=== PATIENT | female | born 1975 | race Caucasian/White ===

== ENCOUNTER 2016-12-10 16:15 | Emergency (ER) | payer MEDICAID ==
[2016-12-10 17:11] LABS: BASOPHILS 0.1 % (0.0-2.0); EOSINOPHILS 1.9 % (0-7); HEMATOCRIT 38.9 % (36.0-48.0); HEMOGLOBIN 12.1 g/dL (12-16); IMMATURE GRANULOCYTES 0.4 % (0-5); MCH 29.6 pg (26.0-34.0); MCHC 31.1 g/dL (31.0-37.0); MCV 95.1 fL (80.0-100.0); MEAN PLATELET VOLUME 9.7 fL (7.4-10.4); MONOCYTES 7.7 % (2-11); NEUTROPHILS 66.9 % (40-80); RBC 4.09 10x6/uL (4.00-5.40); RDW 14.3 % (11.5-14.5); WBC 14.9 10x3/uL (4.8-10.8)
[2016-12-10 17:15] LABS: PLATELET COUNT 350 10x3/uL (130-400)
[2016-12-10 17:34] LABS: ALBUMIN 3.7 g/dL (3.4-5.0); ANION GAP 15.9 mmol/L (8-16); BILIRUBIN - TOTAL 0.17 mg/dL (0.2-1.3); CALCIUM 8.5 mg/dL (8.5-10.1); CARBON DIOXIDE 22.7 mmol/L (21.0-32.0); CREATININE - SERUM 1.1 mg/dL (0.6-1.3); POTASSIUM - SERUM 4.6 mmol/L (3.5-5.1); PROTEIN - SERUM 7.4 g/dL (6.4-8.2)
[2016-12-10 20:20] LABS: APPEARANCE CLEAR (CLEAR); BILIRUBIN NEGATIVE (NEGATIVE); COLOR YELLOW (YELLOW); GLUCOSE NEGATIVE (NEGATIVE); KETONE NEGATIVE (NEGATIVE); LEUKOCYTE ESTERASE NEGATIVE (NEGATIVE); NITRITE NEGATIVE (NEGATIVE); PROTEIN NEGATIVE (NEGATIVE); SPECIFIC GRAVITY 1.015 (1.005-1.020); UROBILINOGEN NORMAL (NORMAL)
== END 2016-12-10 20:10 | disposition home or self-care (01) ==
LOC: D.ER 16:15
PROVIDERS: Emergency Medicine
DX: R11.10 Vomiting, unspecified (principal); R19.7 Diarrhea, unspecified; M32.9 Systemic lupus erythematosus, unspecified; E86.0 Dehydration; M79.7 Fibromyalgia; F25.9 Schizoaffective disorder, unspecified

== ENCOUNTER 2016-12-30 13:29 | Emergency (ER) | payer MEDICAID ==
[2016-12-30 15:11] LABS: BASOPHILS 0.2 % (0.0-2.0); EOSINOPHILS 3.1 % (0-7); HEMATOCRIT 36.4 % (36.0-48.0); HEMOGLOBIN 11.2 g/dL (12-16); IMMATURE GRANULOCYTES 0.4 % (0-5); LYMPHOCYTES 21.4 % (15-50); MCH 28.5 pg (26.0-34.0); MCHC 30.8 g/dL (31.0-37.0); MCV 92.6 fL (80.0-100.0); MEAN PLATELET VOLUME 9.8 fL (7.4-10.4); MONOCYTES 6.9 % (2-11); PLATELET COUNT 298 10x3/uL (130-400); RBC 3.93 10x6/uL (4.00-5.40); RDW 13.8 % (11.5-14.5); WBC 12.6 10x3/uL (4.8-10.8)
[2016-12-30 15:30] LABS: ALBUMIN 3.3 g/dL (3.4-5.0); ANION GAP 11.7 mmol/L (8-16); BILIRUBIN - TOTAL 0.2 mg/dL (0.2-1.3); CALCIUM 8.6 mg/dL (8.5-10.1); CARBON DIOXIDE 27.4 mmol/L (21.0-32.0); POTASSIUM - SERUM 4.1 mmol/L (3.5-5.1); PROTEIN - SERUM 7.2 g/dL (6.4-8.2)
== END 2016-12-30 19:15 | disposition home or self-care (01) ==
LOC: D.ER 13:29
PROVIDERS: Emergency Medicine
DX: R55 Syncope and collapse (principal); I10 Essential (primary) hypertension; I95.9 Hypotension, unspecified; M32.9 Systemic lupus erythematosus, unspecified; F25.9 Schizoaffective disorder, unspecified

== ENCOUNTER 2017-02-28 19:35 | Emergency (ER) | payer MEDICAID ==
[2017-02-28 21:06] LABS: BASOPHILS 0.1 % (0-2); EOSINOPHILS 2.2 % (0-7); HEMOGLOBIN 12.2 g/dL (12-16); IMMATURE GRANULOCYTES 0.4 % (0-5); LYMPHOCYTES 26.6 % (15-50); MCH 28.4 pg (26.0-34.0); MCHC 31.3 g/dL (31.0-37.0); MCV 90.9 fL (80.0-100.0); MEAN PLATELET VOLUME 9.2 fL (7.4-10.4); MONOCYTES 6.9 % (2-11); NEUTROPHILS 63.8 % (40-80); PLATELET COUNT 333 10x3/uL (130-400); RBC 4.29 10x6/uL (4.00-5.40); RDW 15.2 % (11.5-14.5)
[2017-02-28 21:14] LABS: APPEARANCE CLEAR (CLEAR); BILIRUBIN NEGATIVE (NEGATIVE); COLOR YELLOW (YELLOW); GLUCOSE NEGATIVE (NEGATIVE); KETONE NEGATIVE (NEGATIVE); LEUKOCYTE ESTERASE NEGATIVE (NEGATIVE); NITRITE NEGATIVE (NEGATIVE); PROTEIN NEGATIVE (NEGATIVE); SPECIFIC GRAVITY 1.015 (1.005-1.020); UROBILINOGEN NORMAL (NORMAL)
[2017-02-28 21:15] LABS: BACTERIA FEW /hpf (NONE SEEN); EPITHELIAL CELLS 0-5 /hpf (0-5); RED CELLS - URINE 0-5 /hpf (0-5); WHITE CELLS - URINE NSEEN /hpf (0-5)
[2017-02-28 21:28] LABS: ANION GAP 14.4 mmol/L (8-16); CREATININE - SERUM 1.3 mg/dL (0.6-1.3); POTASSIUM - SERUM 4.4 mmol/L (3.5-5.1)
== END 2017-03-01 00:35 | disposition home or self-care (01) ==
LOC: D.ER 19:35
PROVIDERS: Physician Assistant Medical
DX: R13.10 Dysphagia, unspecified (principal); I10 Essential (primary) hypertension; I95.9 Hypotension, unspecified; F25.9 Schizoaffective disorder, unspecified; M32.9 Systemic lupus erythematosus, unspecified

== ENCOUNTER 2017-03-26 14:20 | Emergency (ER) | payer MEDICAID ==
[2017-03-26 15:20] LABS: BASOPHILS 0.1 % (0-2); EOSINOPHILS 1.9 % (0-7); HEMATOCRIT 38.3 % (36.0-48.0); IMMATURE GRANULOCYTES 0.2 % (0-5); LYMPHOCYTES 30.2 % (15-50); MCH 28.4 pg (26.0-34.0); MCHC 31.3 g/dL (31.0-37.0); MCV 90.5 fL (80.0-100.0); MONOCYTES 6.7 % (2-11); NEUTROPHILS 60.9 % (40-80); PLATELET COUNT 312 10x3/uL (130-400); RBC 4.23 10x6/uL (4.00-5.40); RDW 16.2 % (11.5-14.5); WBC 11.1 10x3/uL (4.8-10.8)
[2017-03-26 15:31] LABS: ALBUMIN 3.3 g/dL (3.4-5.0); ANION GAP 11.5 mmol/L (8-16); BILIRUBIN - TOTAL 0.22 mg/dL (0.2-1.3); CALCIUM 9.2 mg/dL (8.5-10.1); CARBON DIOXIDE 26.7 mmol/L (21.0-32.0); CREATININE - SERUM 1.3 mg/dL (0.6-1.3); POTASSIUM - SERUM 4.2 mmol/L (3.5-5.1); PROTEIN - SERUM 7.4 g/dL (6.4-8.2)
[2017-03-26 17:58] LABS: T4 THYROXIN - FREE 0.92 ng/dL (0.76-1.46); THYROID STIMULATING HORMONE 4.86 uIU/mL (0.36-3.74)
== END 2017-03-26 19:30 | disposition home or self-care (01) ==
LOC: D.ER 14:20
PROVIDERS: Emergency Medicine; Physician Assistant
DX: M54.2 Cervicalgia (principal); R11.2 Nausea with vomiting, unspecified; E03.9 Hypothyroidism, unspecified; I10 Essential (primary) hypertension; F25.9 Schizoaffective disorder, unspecified; F17.200 Nicotine dependence, unspecified, uncomplicated

== ENCOUNTER 2017-06-23 11:09 | Emergency (ER) | payer MEDICAID ==
[2017-06-23 11:50] LABS: APPEARANCE CLEAR (CLEAR); BACTERIA MODERATE /hpf (NONE SEEN); BILIRUBIN NEGATIVE (NEGATIVE); COLOR STRAW (YELLOW); EPITHELIAL CELLS 0-5 /hpf (0-5); GLUCOSE NEGATIVE (NEGATIVE); KETONE NEGATIVE (NEGATIVE); LEUKOCYTE ESTERASE TRACE (NEGATIVE); MUCUS <1+ /lpf (NONE SEEN); NITRITE NEGATIVE (NEGATIVE); PROTEIN NEGATIVE (NEGATIVE); SPECIFIC GRAVITY 1.005 (1.005-1.020); UROBILINOGEN NORMAL (NORMAL); WHITE CELLS - URINE 0-5 /hpf (0-5)
[2017-06-23 12:00] LABS: UDS - AMPHET NEGATIVE QUAL (NEGATIVE); UDS - BARB NEGATIVE QUAL (NEGATIVE); UDS - BENZO NEGATIVE QUAL (NEGATIVE); UDS - COCAINE NEGATIVE QUAL (NEGATIVE); UDS - METH NEGATIVE QUAL (NEGATIVE); UDS - OPIATE NEGATIVE QUAL (NEGATIVE); UDS - PCP NEGATIVE QUAL (NEGATIVE); UDS - THC POSITIVE QUAL (NEGATIVE)
[2017-06-23 12:11] LABS: BASOPHILS 0.1 % (0-2); EOSINOPHILS 1.9 % (0-7); HEMATOCRIT 38.5 % (36.0-48.0); HEMOGLOBIN 12.2 g/dL (12-16); IMMATURE GRANULOCYTES 0.5 % (0-5); LYMPHOCYTES 20.1 % (15-50); MCH 28.9 pg (26.0-34.0); MCHC 31.7 g/dL (31.0-37.0); MCV 91.2 fL (80.0-100.0); MEAN PLATELET VOLUME 9.3 fL (7.4-10.4); MONOCYTES 6.4 % (2-11); PLATELET COUNT 283 10x3/uL (130-400); RBC 4.22 10x6/uL (4.00-5.40); RDW 14.7 % (11.5-14.5); WBC 14.6 10x3/uL (4.8-10.8)
[2017-06-23 12:25] LABS: ALBUMIN 3.2 g/dL (3.4-5.0); ANION GAP 11.6 mmol/L (8-16); BILIRUBIN - TOTAL 0.23 mg/dL (0.2-1.3); CALCIUM 8.6 mg/dL (8.5-10.1); CARBON DIOXIDE 26.7 mmol/L (21.0-32.0); POTASSIUM - SERUM 4.3 mmol/L (3.5-5.1); PROTEIN - SERUM 7.3 g/dL (6.4-8.2)
== END 2017-06-23 14:59 | disposition home or self-care (01) ==
LOC: D.ER 11:09
PROVIDERS: Emergency Medicine; Nurse Practitioner Family
DX: N39.0 Urinary tract infection, site not specified (principal); N76.0 Acute vaginitis; B96.89 Other specified bacterial agents as the cause of diseases classified elsewhere; M54.5 Low back pain; I10 Essential (primary) hypertension

== ENCOUNTER 2018-08-05 17:04 | Inpatient (IN) | payer MEDICAID ==
[~2018-08-05] VITALS: Ht 160 cm; Wt 128.7 kg
--- NOTE | ~2018-08-05 | MORECARE ---
CASE MANAGEMENT DISCHARGE SUMMARY PATIENT: DOROTA LANDERS UNIT: [id number] ADM DATE: 08/05/18 AGE: 43 : 73 SEX: F ROOM/BED: D.2206 AUTHOR: JONAS PEREZ PHYSICIAN: REFERRING PHYSICIAN: GITA MABRY MD DATE OF SERVICE: 08/06/18 Discharge Plan Patient Name: DOROTA LANDERS Facility: [facility]:[place] : 1975 Planned Disposition: Home Anticipated Discharge Date: Discharge Date: Expected LOS: Initial Reviewer: [email or web address] Initial Review Date: 08/05/2018 Generated: 08/06/18 1:18 pm Comments DCP- Discharge Planning Updated by [email or web address]: Kierra Reyes on 08/06/18 11:[address] Patient Name: DOROTA LANDERS Admission Status: ER Accout number: [id number] Admission Date: 08-05-2018 : 1975 Admission Diagnosis:NONINFECTIVE GASTROENTERITIS AND COLITIS, UNSPECIFIED Attending: GITA MABRY Current LOS: 1 Anticipated DC Date: Planned Disposition: Home Primary Insurance: MEDICAID [place] Discharge Planning Comments: CM met with patient to assess discharge planning needs. Patient stated that she is independent with her care at home. She stated that someone will pick her up. They do not have a car right now, but her can borrow one. She uses a cane sometime. She has 15 steps outside to get in her front door. She stated that her 18 year old boy will be able to help her up. She denies any HH needs at this time. CM will continue to follow and assist with DC planning as needed. She states her home is safe to return Service Crew Supervisor: Kierra Reyes DCPIA - Discharge Planning Initial Assessment Updated by [email or web address]: Kierra Reyes on 08/06/18 12:06 pm * Is the patient Alert and Oriented? Yes * How many steps to enter\exit or inside your home? 15 * PCP [facility] (RONNY CLARKE) * Pharmacy [facility] * Preadmission Environment Home with Family * ADLs Independent * Equipment Cane * List name and contact numbers for known caregivers / representatives who currently or will assist patient after discharge: HERSON [phone] * Verbal permission to speak to the caregivers and representatives has been obtained from the patient. N/A * Community resources currently utilized None * Additional services required to return to the preadmission environment? No * Can the patient safely return to the preadmission environment? Yes * Has this patient been hospitalized within the prior 30 days at any hospital? No Last DP export: 08/06/18 11:11 a Patient Name: DOROTA LANDERS Page 85663 at 1218 All edits/amendments must be made on the electronic document DICTATION DATE: 08/06/18 1218 FINAL CIGAR AND BOX EXAMINER: VIJI 08/06/18 1218 RPT#: [id number] DC DATE: STATUS: ADM IN [facility] [address] [place] [address] END OF REPORT
--- NOTE | ~2018-08-05 | MORECARE ---
CASE MANAGEMENT DISCHARGE SUMMARY PATIENT: DOROTA LANDERS UNIT: [id number] ADM DATE: 08/05/18 AGE: 43 : 73 SEX: F ROOM/BED: D.2206 AUTHOR: JONAS PEREZ PHYSICIAN: REFERRING PHYSICIAN: GITA MABRY MD DATE OF SERVICE: 08/06/18 Discharge Plan Patient Name: DOROTA LANDERS [facility] : 1975 Planned Disposition: Home Anticipated Discharge Date: Discharge Date: Expected LOS: Initial Reviewer: [email or web address] Initial Review Date: 08/05/2018 Generated: 08/06/18 1:11 pm DCPIA - Discharge Planning Initial Assessment Updated by [email or web address]: Kierra Reyes on 08/06/18 12:06 pm * Is the patient Alert and Oriented? Yes * How many steps to enter\exit or inside your home? 15 * PCP [facility] (RONNY CLARKE) * Pharmacy [facility] * Preadmission Environment Home with Family * ADLs Independent * Equipment Cane * List name and contact numbers for known caregivers / representatives who currently or will assist patient after discharge: HERSON [phone] * Verbal permission to speak to the caregivers and representatives has been obtained from the patient. N/A * Community resources currently utilized None * Additional services required to return to the preadmission environment? No * Can the patient safely return to the preadmission environment? Yes * Has this patient been hospitalized within the prior 30 days at any hospital? No Patient Name: DOROTA LANDERS Page 22696 at 1211 All edits/amendments must be made on the electronic document DICTATION DATE: 08/06/18 1210 UNDERGROUND REPAIRER: VIJI 08/06/18 1210 RPT#: [id number] DC DATE: STATUS: ADM IN [facility] [address] [place] [address] END OF REPORT
--- NOTE | ~2018-08-05 | MORECARE ---
CASE MANAGEMENT DISCHARGE SUMMARY PATIENT: DOROTA LANDERS UNIT: [id number] ADM DATE: 08/05/18 AGE: 43 : 73 SEX: F ROOM/BED: D.2206 AUTHOR: JONAS PEREZ PHYSICIAN: REFERRING PHYSICIAN: GITA MABRY MD DATE OF SERVICE: 08/16/18 Discharge Plan Patient Name: DOROTA LANDERS Facility: [facility]:[place] : 1975 Planned Disposition: Home Anticipated Discharge Date: Discharge Date: 08/15/2018 Expected LOS: 0 Initial Reviewer: [email or web address] Initial Review Date: 08/05/2018 Generated: 08/16/18 10:21 am DCP- Discharge Planning Updated by [email or web address]: Kierra Reyes on 08/06/18 12:[address] Patient Name: DOROTA LANDERS Admission Status: ER Accout number: [id number] Admission Date: 08-05-2018 : 1975 Admission Diagnosis:NONINFECTIVE GASTROENTERITIS AND COLITIS, UNSPECIFIED Attending: GITA MABRY Current LOS: 1 Anticipated DC Date: Planned Disposition: Home Primary Insurance: MEDICAID [place] Discharge Planning Comments: CM met with patient to assess discharge planning needs. Patient stated that she is independent with her care at home. She stated that someone will pick her up. They do not have a car right now, but her can borrow one. She uses a cane sometime. She has 15 steps outside to get in her front door. She stated that her 18 year old boy will be able to help her up. She denies any HH needs at this time. CM will continue to follow and assist with DC planning as needed. She states her home is safe to return Condenser Winder: Kierra Reyes DCPIA - Discharge Planning Initial Assessment Updated by [email or web address]: Kierra Reyes on 08/06/18 12:06 pm * Is the patient Alert and Oriented? Yes * How many steps to enter\exit or inside your home? 15 * PCP [facility] (RONNY CLARKE) * Pharmacy [facility] * Preadmission Environment Home with Family * ADLs Independent * Equipment Cane * List name and contact numbers for known caregivers / representatives who currently or will assist patient after discharge: HERSON [phone] * Verbal permission to speak to the caregivers and representatives has been obtained from the patient. N/A * Community resources currently utilized None * Additional services required to return to the preadmission environment? No * Can the patient safely return to the preadmission environment? Yes * Has this patient been hospitalized within the prior 30 days at any hospital? No Last DP export: 08/06/18 12:18 p Patient Name: DOROTA LANDERS Page 56400 at 0921 All edits/amendments must be made on the electronic document DICTATION DATE: 08/16/18920 CHIEF LIBRARIAN MUSIC DEPARTMENT: VIJI 08/16/18920 RPT#: [id number] DC DATE:08/15/18 STATUS: DIS IN [facility] [address] [place] [address] END OF REPORT
[2018-08-05] MEDS ORDERED: GABAPENTIN100 MG PO (17:07)
[2018-08-05] MEDS ORDERED: EFFEXOR100 MG PO (17:08)
[2018-08-05] MEDS ORDERED: KLONOPIN1 MG PO (17:08)
[2018-08-05] MEDS ORDERED: LEVOTHYROXINE175 MCG PO (17:08)
[2018-08-05] MEDS ORDERED: TRAZODONE HCL100 MG PO (17:09)
[2018-08-05] MEDS ORDERED: ABILIFY10 MG PO (17:09)
[2018-08-05] MEDS ORDERED: PLAQUENIL 200200 MG PO (17:10)
[2018-08-05 17:44] LABS: BASOPHILS 0.2 % (0-2); EOSINOPHILS 10.8 % (0-7); HEMATOCRIT 40.9 % (36.0-48.0); HEMOGLOBIN 13.1 g/dL (12-16); IMMATURE GRANULOCYTES 0.2 % (0-5); LYMPHOCYTES 26.1 % (15-50); MCH 27.5 pg (26.0-34.0); MCV 85.9 fL (80.0-100.0); MEAN PLATELET VOLUME 9.4 fL (7.4-10.4); MONOCYTES 5.8 % (2-11); NEUTROPHILS 56.9 % (40-80); PLATELET COUNT 321 10x3/uL (130-400); RBC 4.76 10x6/uL (4.00-5.40); RDW 15.3 % (11.5-14.5); WBC 12.4 10x3/uL (4.8-10.8)
[2018-08-05 17:57] LABS: ALBUMIN 3.4 g/dL (3.4-5.0); ALKALINE PHOSPHATASE 61 U/L (46-116); ALT (SGPT) 24 U/L (10-68); BILIRUBIN - TOTAL 0.37 mg/dL (0.2-1.3); CALC OSMOLALITY 274 mosm/kg (275-300); CALCIUM 9.6 mg/dL (8.5-10.1); CARBON DIOXIDE 26.5 mmol/L (21.0-32.0); CHLORIDE - SERUM 103 mmol/L (98-107); GLUCOSE 88 mg/dL (74-106); POTASSIUM - SERUM 3.8 mmol/L (3.5-5.1); PROTEIN - SERUM 7.8 g/dL (6.4-8.2); SODIUM 139 mmol/L (136-145); UREA NITROGEN 7 mg/dL (7-18); eGFR NON AFRICAN AMERICAN 64 mL/min (90-120)
[2018-08-05 18:01] LABS: AMYLASE - SERUM 22 U/L (25-115); LIPASE 127 U/L (73-393)
[2018-08-05 18:04] LABS: TROPONIN-I < 0.017 ng/mL (0.000-0.060)
[2018-08-05 18:35] LABS: APPEARANCE CLOUDY (CLEAR); COLOR YELLOW (YELLOW)
[2018-08-05 18:36] LABS: BILIRUBIN NEGATIVE (NEGATIVE); GLUCOSE NEGATIVE (NEGATIVE); KETONE NEGATIVE (NEGATIVE); NITRITE NEGATIVE (NEGATIVE); PROTEIN 1+ mg/dL (NEGATIVE); RED CELLS - URINE 0-5 /hpf (0-5); SPECIFIC GRAVITY 1.015 (1.005-1.020); UROBILINOGEN NORMAL (NORMAL)
[2018-08-05 18:38] LABS: BACTERIA MODERATE /hpf (NONE SEEN)
[2018-08-05 18:39] LABS: MUCUS <1+ /lpf (NONE SEEN)
[2018-08-05 23:34] VITALS: BP 140/86; BMI 50.2
[2018-08-06 05:11] VITALS: BP 101/70
[2018-08-06 06:12] LABS: BASOPHILS 0.1 % (0-2); HEMATOCRIT 36.8 % (36.0-48.0); HEMOGLOBIN 11.5 g/dL (12-16); IMMATURE GRANULOCYTES 0.3 % (0-5); LYMPHOCYTES 24.5 % (15-50); MCHC 31.3 g/dL (31.0-37.0); MCV 86.4 fL (80.0-100.0); MEAN PLATELET VOLUME 9.7 fL (7.4-10.4); MONOCYTES 5.5 % (2-11); NEUTROPHILS 55.6 % (40-80); PLATELET COUNT 305 10x3/uL (130-400); RBC 4.26 10x6/uL (4.00-5.40); RDW 15.7 % (11.5-14.5); WBC 9.6 10x3/uL (4.8-10.8)
[2018-08-06 06:36] LABS: ALBUMIN 2.8 g/dL (3.4-5.0); ANION GAP 12.4 mmol/L (8-16); BILIRUBIN - TOTAL 0.44 mg/dL (0.2-1.3); CALCIUM 8.7 mg/dL (8.5-10.1); CARBON DIOXIDE 27.9 mmol/L (21.0-32.0); POTASSIUM - SERUM 4.3 mmol/L (3.5-5.1); PROTEIN - SERUM 6.3 g/dL (6.4-8.2)
[2018-08-06 08:23] VITALS: BP 118/56
[2018-08-06 10:08] VITALS: BMI 50.1
[2018-08-06 12:13] VITALS: BP 110/65
[2018-08-06 16:23] VITALS: BP 106/70
[2018-08-06 21:18] VITALS: BP 101/61
[2018-08-07 06:01] LABS: BASOPHILS 0.1 % (0-2); EOSINOPHILS 14.3 % (0-7); HEMATOCRIT 36.1 % (36.0-48.0); HEMOGLOBIN 11.1 g/dL (12-16); IMMATURE GRANULOCYTES 0.2 % (0-5); LYMPHOCYTES 30.8 % (15-50); MCH 26.9 pg (26.0-34.0); MCHC 30.7 g/dL (31.0-37.0); MCV 87.4 fL (80.0-100.0); MEAN PLATELET VOLUME 9.7 fL (7.4-10.4); MONOCYTES 7.5 % (2-11); NEUTROPHILS 47.1 % (40-80); PLATELET COUNT 303 10x3/uL (130-400); RBC 4.13 10x6/uL (4.00-5.40); RDW 15.3 % (11.5-14.5); WBC 8.1 10x3/uL (4.8-10.8)
[2018-08-07 06:22] LABS: ALBUMIN 2.7 g/dL (3.4-5.0); ANION GAP 10.4 mmol/L (8-16); BILIRUBIN - TOTAL 0.16 mg/dL (0.2-1.3); CALCIUM 8.8 mg/dL (8.5-10.1); CARBON DIOXIDE 27.7 mmol/L (21.0-32.0); CREATININE - SERUM 0.9 mg/dL (0.6-1.3); POTASSIUM - SERUM 4.1 mmol/L (3.5-5.1); PROTEIN - SERUM 6.4 g/dL (6.4-8.2)
[2018-08-07 09:17] VITALS: BP 113/58
[2018-08-07 12:43] VITALS: BP 148/62
[2018-08-07 17:00] VITALS: BP 146/78
[2018-08-07 20:43] VITALS: BP 133/69
[2018-08-08 00:44] VITALS: BP 127/59
[2018-08-08 04:00] VITALS: BP 121/55
[2018-08-08 06:07] LABS: BASOPHILS 0.1 % (0-2); EOSINOPHILS 10.2 % (0-7); HEMATOCRIT 35.6 % (36.0-48.0); HEMOGLOBIN 10.9 g/dL (12-16); IMMATURE GRANULOCYTES 0.2 % (0-5); LYMPHOCYTES 27.5 % (15-50); MCH 26.7 pg (26.0-34.0); MCHC 30.6 g/dL (31.0-37.0); MEAN PLATELET VOLUME 9.6 fL (7.4-10.4); MONOCYTES 6.7 % (2-11); NEUTROPHILS 55.3 % (40-80); PLATELET COUNT 276 10x3/uL (130-400); RBC 4.09 10x6/uL (4.00-5.40); RDW 15.4 % (11.5-14.5)
[2018-08-08 06:27] LABS: ANION GAP 9.8 mmol/L (8-16); CALCIUM 8.7 mg/dL (8.5-10.1); CREATININE - SERUM 0.9 mg/dL (0.6-1.3); POTASSIUM - SERUM 3.8 mmol/L (3.5-5.1)
[2018-08-08 08:17] VITALS: BP 137/75
[2018-08-08 11:56] VITALS: BP 135/68
[2018-08-08 16:07] VITALS: BP 127/67
[2018-08-08 20:00] VITALS: BP 142/75
[2018-08-09 01:00] VITALS: BP 124/54
[2018-08-09 05:24] VITALS: BP 121/60
[2018-08-09 08:12] VITALS: BP 100/66
[2018-08-09 13:04] VITALS: BP 112/72
[2018-08-09 16:33] VITALS: BP 108/65
[2018-08-09 20:00] VITALS: BP 124/49
[2018-08-10] VITALS: BP 125/68
[2018-08-10 04:00] VITALS: BP 117/61
[2018-08-10 08:30] VITALS: BP 108/71
[2018-08-10 12:45] VITALS: BP 106/61
[2018-08-10 16:22] VITALS: BP 116/71
[2018-08-10 20:28] VITALS: Ht 160 cm; Wt 128.7 kg
[2018-08-10 20:41] VITALS: BP 135/52
[2018-08-11 04:52] VITALS: BP 98/59
[2018-08-11 05:32] LABS: BASOPHILS 0.1 % (0-2); EOSINOPHILS 12.7 % (0-7); HEMOGLOBIN 11.4 g/dL (12-16); IMMATURE GRANULOCYTES 0.3 % (0-5); LYMPHOCYTES 30.7 % (15-50); MCH 27.2 pg (26.0-34.0); MCHC 30.8 g/dL (31.0-37.0); MCV 88.3 fL (80.0-100.0); MEAN PLATELET VOLUME 9.8 fL (7.4-10.4); MONOCYTES 7.3 % (2-11); NEUTROPHILS 48.9 % (40-80); PLATELET COUNT 298 10x3/uL (130-400); RBC 4.19 10x6/uL (4.00-5.40); WBC 9.4 10x3/uL (4.8-10.8)
[2018-08-11 05:49] LABS: ANION GAP 10.7 mmol/L (8-16); CALCIUM 8.8 mg/dL (8.5-10.1); CARBON DIOXIDE 28.1 mmol/L (21.0-32.0); CREATININE - SERUM 0.9 mg/dL (0.6-1.3); POTASSIUM - SERUM 3.8 mmol/L (3.5-5.1)
[2018-08-11 09:06] VITALS: BP 117/74
[2018-08-11 13:14] VITALS: BP 126/81
[2018-08-11 21:32] VITALS: BP 125/87
[2018-08-12 04:59] LABS: BASOPHILS 0.1 % (0-2); EOSINOPHILS 8.7 % (0-7); HEMATOCRIT 34.4 % (36.0-48.0); HEMOGLOBIN 10.6 g/dL (12-16); IMMATURE GRANULOCYTES 0.2 % (0-5); LYMPHOCYTES 27.3 % (15-50); MCHC 30.8 g/dL (31.0-37.0); MCV 87.5 fL (80.0-100.0); MEAN PLATELET VOLUME 9.8 fL (7.4-10.4); MONOCYTES 8.2 % (2-11); NEUTROPHILS 55.5 % (40-80); PLATELET COUNT 291 10x3/uL (130-400); RBC 3.93 10x6/uL (4.00-5.40); WBC 9.8 10x3/uL (4.8-10.8)
[2018-08-12 05:12] LABS: CALC OSMOLALITY 276 mosm/kg (275-300); CALCIUM 8.1 mg/dL (8.5-10.1); CARBON DIOXIDE 30.4 mmol/L (21.0-32.0); CHLORIDE - SERUM 105 mmol/L (98-107); CREATININE - SERUM 0.8 mg/dL (0.6-1.3); GLUCOSE 89 mg/dL (74-106); POTASSIUM - SERUM 3.6 mmol/L (3.5-5.1); SODIUM 141 mmol/L (136-145); eGFR NON AFRICAN AMERICAN 82 mL/min (90-120)
[2018-08-12 05:19] VITALS: BP 131/82
[2018-08-12 05:24] LABS: UREA NITROGEN 3 mg/dL (7-18)
[2018-08-12 06:08] LABS: ERYTHROCYTE SEDIMENTATION RATE 35 mm/hr (0-20)
[2018-08-12 08:30] VITALS: BP 118/67
[2018-08-12 17:06] VITALS: BP 131/82
[2018-08-12 19:47] VITALS: BP 128/68
[2018-08-13 04:56] VITALS: BP 115/66
[2018-08-13 08:25] VITALS: BP 113/69
[2018-08-13 10:55] LABS: AMYLASE - SERUM 21 U/L (25-115); LIPASE 153 U/L (73-393)
[2018-08-13 12:50] VITALS: BP 120/78
[2018-08-13 14:26] LABS: OVA + PARASITE EXAM Final report (())
[2018-08-13 17:11] VITALS: BP 121/61
[2018-08-13 19:44] VITALS: BP 121/73
[2018-08-14 01:05] VITALS: BP 134/74
[2018-08-14 09:18] VITALS: BP 121/67
[2018-08-14 12:28] VITALS: BP 129/78
[2018-08-14 16:28] VITALS: BP 133/67
[2018-08-14 20:06] VITALS: BP 134/94
[2018-08-15 04:26] VITALS: BP 154/80
[2018-08-15 05:01] LABS: BASOPHILS 0.1 % (0-2); EOSINOPHILS 5.1 % (0-7); HEMATOCRIT 35.3 % (36.0-48.0); HEMOGLOBIN 11.1 g/dL (12-16); IMMATURE GRANULOCYTES 0.3 % (0-5); LYMPHOCYTES 24.3 % (15-50); MCH 27.3 pg (26.0-34.0); MCHC 31.4 g/dL (31.0-37.0); MCV 86.7 fL (80.0-100.0); MEAN PLATELET VOLUME 9.3 fL (7.4-10.4); MONOCYTES 8.1 % (2-11); NEUTROPHILS 62.1 % (40-80); PLATELET COUNT 291 10x3/uL (130-400); RBC 4.07 10x6/uL (4.00-5.40); RDW 15.8 % (11.5-14.5); WBC 11.9 10x3/uL (4.8-10.8)
[2018-08-15 05:10] LABS: CALC OSMOLALITY 277 mosm/kg (275-300); CHLORIDE - SERUM 103 mmol/L (98-107); CREATININE - SERUM 0.7 mg/dL (0.6-1.3); GLUCOSE 110 mg/dL (74-106); POTASSIUM - SERUM 4.1 mmol/L (3.5-5.1); SODIUM 139 mmol/L (136-145); UREA NITROGEN 9 mg/dL (7-18); eGFR NON AFRICAN AMERICAN > 90 mL/min (90-120)
[2018-08-15] MEDS ORDERED: FLORAJEN3 CAPS460 MG PO (09:36)
[2018-08-15] MEDS ORDERED: ENTOCORT EC3 MG PO (09:38)
[2018-08-15] MEDS ORDERED: HYDROCODON-ACE1 EAC7 PO (09:38)
[2018-08-15 09:47] VITALS: BP 134/68
[2018-08-18 16:16] LABS: CHLAMYDIA TRACHOMATIS, NAA Negative (Negative)
== END 2018-08-15 12:02 | disposition home or self-care (01) | DRG 392 ==
LOC: D.ER 17:04 → D.MS 19:38
PROVIDERS: Family Medicine; Internal Medicine Gastroenterology
PROC: 0DBK8ZX Excision of Ascending Colon, Via Natural or Artificial Opening Endoscopic, Diagnostic (ICD-10-PCS; 2018-08-12)
PROC: 0DBN8ZX Excision of Sigmoid Colon, Via Natural or Artificial Opening Endoscopic, Diagnostic (ICD-10-PCS; 2018-08-12)
PROC: 0DB68ZX Excision of Stomach, Via Natural or Artificial Opening Endoscopic, Diagnostic (ICD-10-PCS; principal; 2018-08-12 11:00)
DX: K52.832 Lymphocytic colitis (principal); Z68.43 Body mass index [BMI] 50.0-59.9, adult; N39.0 Urinary tract infection, site not specified; M32.9 Systemic lupus erythematosus, unspecified; R63.4 Abnormal weight loss; E66.01 Morbid (severe) obesity due to excess calories; K64.8 Other hemorrhoids; K44.9 Diaphragmatic hernia without obstruction or gangrene; K29.70 Gastritis, unspecified, without bleeding; N83.209 Unspecified ovarian cyst, unspecified side; D25.9 Leiomyoma of uterus, unspecified; N76.0 Acute vaginitis; B37.3 Candidiasis of vulva and vagina; E03.9 Hypothyroidism, unspecified

== ENCOUNTER → 2019-01-24 13:10 | Outpatient (CLI) | payer OTHER ==
[2018-08-10 20:28] VITALS: BMI 50.1
[~2019-01-24 13:10] MED LIST: ABILIFY10 MG PO; EFFEXOR100 MG PO; ENTOCORT EC3 MG PO; FLORAJEN3 CAPS460 MG PO; GABAPENTIN100 MG PO; HYDROCODON-ACE1 EAC7 PO; KLONOPIN1 MG PO; LEVOTHYROXINE175 MCG PO; PLAQUENIL 200200 MG PO; TRAZODONE HCL100 MG PO
== END | disposition home or self-care (01) ==
LOC: D.RAD 08:30
PROVIDERS: ATTEND Pediatrics
DX: Z02.71 Encounter for disability determination (principal)

== ENCOUNTER 2019-03-23 15:13 | Emergency (ER) | payer MEDICAID ==
[~2019-03-23] VITALS: Ht 160 cm; Wt 131.0 kg
[2019-03-23 15:21] VITALS: Ht 160 cm; Wt 131.0 kg
[2019-03-23] MEDS ORDERED: BUSPAR 15 MG TA15 MG PO (15:27)
[2019-03-23] MEDS ORDERED: BENTYL10 MG PO (15:27)
[2019-03-23] MEDS ORDERED: TRAZODONE HCL150 MG PO (15:28)
[2019-03-23] MEDS ORDERED: VITAMIN B-1250 MG PO (15:28)
[2019-03-23 16:10] LABS: BASOPHILS 0.1 % (0-2); EOSINOPHILS 2.9 % (0-7); HEMATOCRIT 40.8 % (36.0-48.0); HEMOGLOBIN 13.2 g/dL (12-16); IMMATURE GRANULOCYTES 0.2 % (0-5); LYMPHOCYTES 30.9 % (15-50); MCH 29.1 pg (26.0-34.0); MCHC 32.4 g/dL (31.0-37.0); MCV 90.1 fL (80.0-100.0); MEAN PLATELET VOLUME 9.6 fL (7.4-10.4); MONOCYTES 5.8 % (2-11); NEUTROPHILS 60.1 % (40-80); PLATELET COUNT 291 10x3/uL (130-400); RBC 4.53 10x6/uL (4.00-5.40); RDW 14.6 % (11.5-14.5); WBC 9.7 10x3/uL (4.8-10.8)
[2019-03-23 16:23] LABS: APPEARANCE CLEAR (CLEAR); BILIRUBIN NEGATIVE (NEGATIVE); COLOR YELLOW (YELLOW); GLUCOSE NEGATIVE (NEGATIVE); KETONE NEGATIVE (NEGATIVE); NITRITE NEGATIVE (NEGATIVE); PROTEIN NEGATIVE (NEGATIVE); UROBILINOGEN NORMAL (NORMAL)
[2019-03-23 16:31] LABS: ALBUMIN 3.5 g/dL (3.4-5.0); ALKALINE PHOSPHATASE 67 U/L (46-116); ALT (SGPT) 22 U/L (10-68); AMYLASE - SERUM 33 U/L (25-115); BILIRUBIN - TOTAL 0.25 mg/dL (0.2-1.3); CALC OSMOLALITY 279 mosm/kg (275-300); CALCIUM 8.8 mg/dL (8.5-10.1); CARBON DIOXIDE 26.9 mmol/L (21.0-32.0); CHLORIDE - SERUM 106 mmol/L (98-107); CREATININE - SERUM 0.8 mg/dL (0.6-1.3); GLUCOSE 98 mg/dL (74-106); LIPASE 220 U/L (73-393); POTASSIUM - SERUM 3.9 mmol/L (3.5-5.1); PROTEIN - SERUM 7.3 g/dL (6.4-8.2); SODIUM 141 mmol/L (136-145); UREA NITROGEN 10 mg/dL (7-18); eGFR NON AFRICAN AMERICAN 82 mL/min (90-120)
[2019-03-23 16:35] LABS: TROPONIN-I < 0.017 ng/mL (0.000-0.060)
[2019-03-23 20:23] LABS: ERYTHROCYTE SEDIMENTATION RATE 12 mm/hr (0-20)
[2019-03-23] MEDS ORDERED: STERAPRED DS 1210 MG PO (20:53)
[2019-03-23 22:00] VITALS: BP 144/94
== END 2019-03-23 22:00 | disposition home or self-care (01) ==
LOC: D.ER 15:13
PROVIDERS: Family Medicine
DX: R10.30 Lower abdominal pain, unspecified (principal); M32.9 Systemic lupus erythematosus, unspecified

== ENCOUNTER 2019-10-10 22:46 | Emergency (ER) | payer MEDICAID ==
[~2019-10-10] VITALS: Ht 160 cm; Wt 135.0 kg
[~2019-10-10 22:46] MED LIST changes: +BENTYL10 MG PO; +BUSPAR 15 MG TA15 MG PO; +STERAPRED DS 1210 MG PO; +TRAZODONE HCL150 MG PO; +VITAMIN B-1250 MG PO
[2019-10-10 22:57] VITALS: Ht 160 cm; Wt 135.0 kg
[2019-10-10] MEDS ORDERED: MECLIZINE HCL25 MG PO (23:00)
[2019-10-10] MEDS ORDERED: LISINOPRIL10 MG PO (23:00)
[2019-10-10] MEDS ORDERED: VITAMIN D10000 UNI1 PO (23:00)
[2019-10-10 23:54] LABS: HEMATOCRIT 41.8 % (36.0-48.0); HEMOGLOBIN 13.4 g/dL (12-16); LYMPHOCYTES 29.3 % (15-50); MCH 28.9 pg (26.0-34.0); MCHC 32.1 g/dL (31.0-37.0); MCV 90.3 fL (80.0-100.0); MEAN PLATELET VOLUME 9.1 fL (7.4-10.4); NEUTROPHILS 65.5 % (40-80); RBC 4.63 10x6/uL (4.00-5.40); RDW 13.8 % (11.5-14.5); WBC 14.8 10x3/uL (4.8-10.8)
[2019-10-10 23:59] LABS: PLATELET COUNT 353 10x3/uL (130-400)
[2019-10-11 00:05] LABS: CALC OSMOLALITY 273 mosm/kg (275-300); CALCIUM 8.8 mg/dL (8.5-10.1); CARBON DIOXIDE 28.4 mmol/L (21.0-32.0); CHLORIDE - SERUM 102 mmol/L (98-107); CREATININE - SERUM 0.8 mg/dL (0.6-1.3); GLUCOSE 83 mg/dL (74-106); POTASSIUM - SERUM 3.7 mmol/L (3.5-5.1); SODIUM 138 mmol/L (136-145); UREA NITROGEN 11 mg/dL (7-18); eGFR NON AFRICAN AMERICAN 82 mL/min (90-120)
[2019-10-11 00:14] LABS: HCG URINE NEGATIVE (NEGATIVE)
[2019-10-11 00:18] LABS: ALBUMIN 3.4 g/dL (3.4-5.0); ALKALINE PHOSPHATASE 60 U/L (46-116); ALT (SGPT) 33 U/L (10-68); BILIRUBIN - TOTAL 0.23 mg/dL (0.2-1.3); LIPASE 149 U/L (73-393); PROTEIN - SERUM 7.2 g/dL (6.4-8.2)
[2019-10-11 00:29] LABS: APPEARANCE CLOUDY (CLEAR); BILIRUBIN NEGATIVE (NEGATIVE); COLOR YELLOW (YELLOW); GLUCOSE NEGATIVE (NEGATIVE); KETONE NEGATIVE (NEGATIVE); NITRITE NEGATIVE (NEGATIVE); PROTEIN TRACE mg/dL (NEGATIVE); UROBILINOGEN NORMAL (NORMAL)
[2019-10-11 00:31] LABS: BACTERIA MODERATE /hpf (NEGATIVE); EPITHELIAL CELLS 0-5 /hpf (0-5); RED CELLS - URINE 0-5 /hpf (0-5); WHITE CELLS - URINE 0-5 /hpf (NEGATIVE)
[2019-10-11] MEDS ORDERED: VOLTAREN75 MG PO (01:29)
[2019-10-11] MEDS ORDERED: ZOFRAN ODT4 MG/UDTAB PO (01:29)
[2019-10-11] MEDS ORDERED: CIPRO500 MG PO (01:29)
[2019-10-11] MEDS ORDERED: FLAGYL500 MG PO (01:29)
[2019-10-11 03:21] VITALS: BP 144/95
== END 2019-10-11 03:21 | disposition home or self-care (01) ==
LOC: D.ER 22:46
PROVIDERS: Family Medicine
DX: A09 Infectious gastroenteritis and colitis, unspecified (principal); M79.7 Fibromyalgia; I10 Essential (primary) hypertension

== ENCOUNTER 2020-07-13 12:49 | Inpatient (IN) | payer MEDICAID ==
[~2020-07-13] VITALS: Ht 160 cm; Wt 138.3 kg
[~2020-07-13 12:49] MED LIST changes: +CIPRO500 MG PO; +FLAGYL500 MG PO; +LISINOPRIL10 MG PO; +MECLIZINE HCL25 MG PO; +VITAMIN D10000 UNI1 PO; +VOLTAREN75 MG PO; +ZOFRAN ODT4 MG/UDTAB PO
--- NOTE | 2020-07-13 13:07 | NUR ---
BALTA ESTABLISHED 22 GA R AC
--- NOTE | 2020-07-13 13:18 | NUR ---
NASAL SAWB COLLECTED, LABELED AT BS AND SENT TO LAB
[2020-07-13 13:24] LABS: BASOPHILS 0.1 % (0-2); EOSINOPHILS 2.5 % (0-7); HEMATOCRIT 44.2 % (36.0-48.0); HEMOGLOBIN 13.8 g/dL (12-16); IMMATURE GRANULOCYTES 0.4 % (0-5); LYMPHOCYTES 10.1 % (15-50); MCH 27.9 pg (26.0-34.0); MCHC 31.2 g/dL (31.0-37.0); MCV 89.5 fL (80.0-100.0); MEAN PLATELET VOLUME 9.5 fL (7.4-10.4); NEUTROPHILS 81.9 % (40-80); PLATELET COUNT 313 10x3/uL (130-400); RBC 4.94 10x6/uL (4.00-5.40); RDW 14.4 % (11.5-14.5); WBC 19.7 10x3/uL (4.8-10.8)
[2020-07-13 13:26] LABS: APTT 29.4 SECONDS (22.8-39.4); CALC OSMOLALITY 273 mosm/kg (275-300); CALCIUM 9.2 mg/dL (8.5-10.1); CARBON DIOXIDE 31.4 mmol/L (21.0-32.0); CHLORIDE - SERUM 102 mmol/L (98-107); CREATININE - SERUM 0.9 mg/dL (0.6-1.3); GLUCOSE 108 mg/dL (74-106); INR 0.95 (0.85-1.17); PROTIME 12.7 SECONDS (11.6-15.0); SODIUM 137 mmol/L (136-145); UREA NITROGEN 10 mg/dL (7-18); eGFR NON AFRICAN AMERICAN 71 mL/min (90-120)
[2020-07-13 13:27] LABS: D-DIMER-QUANTITATIVE 0.71 ug/mLFEU (0.20-0.54)
[2020-07-13 13:30] VITALS: BP 157/82
[2020-07-13 13:53] LABS: ALBUMIN 3.4 g/dL (3.4-5.0); ALKALINE PHOSPHATASE 81 U/L (30-120); ALT (SGPT) 25 U/L (10-68); BILIRUBIN - TOTAL 0.44 mg/dL (0.2-1.3); C-REACTIVE PROTEIN 5.9 mg/dL (0.0-0.9); CKMB 1.2 U/L (0.0-3.6); CREATINE KINASE 243 UL (21-215); FERRITIN 64 ng/mL (3-244); MAGNESIUM - SERUM 1.6 mg/dL (1.8-2.4); PRO BNP 61 pg/mL (0-125)
[2020-07-13 13:54] LABS: TROPONIN-I < 0.017 ng/mL (0.000-0.060)
[2020-07-13 13:55] LABS: POTASSIUM - SERUM 4.6 mmol/L (3.5-5.1)
--- NOTE | 2020-07-13 15:07 | NUR ---
RAC SL INFILTRATED. D/C'D INTACT. NO BLEEDING NOTED BANDAGWE APPLIED
[2020-07-13 15:08] VITALS: BP 170/92
[2020-07-13 15:30] VITALS: BP 158/88
[2020-07-13 17:08] VITALS: BP 165/100
--- NOTE | 2020-07-13 17:35 | NUR ---
NASAL SWAB COLLECTED, LABELED AT BS AND SENT TO LAB
[2020-07-13 18:02] VITALS: BP 177/95
--- NOTE | 2020-07-13 19:16 | NUR ---
BS REPORT TO ELADIO BARNEY
--- NOTE | 2020-07-13 20:04 | NUR ---
PT FROM ER VIA STRETCHER, AAO X 3, RESP EVEN AND UNLABORED, NO DISTRESS NOTED, CL IN REACH, SR UP X 2.
[2020-07-13] MEDS ORDERED: DICYCLOMINE 10 MG (20:09)
[2020-07-13] MEDS ORDERED: VALIUM5 MG PO (20:10)
[2020-07-13] MEDS ORDERED: ABILIFY10 MG PO (20:13)
[2020-07-14] VITALS (7 sets, daily range): BP systolic 118–153; BP diastolic 67–83; Ht 160 cm; Wt 138.3 kg
[2020-07-14 06:15] LABS: BASOPHILS 0 % (0-2); EOSINOPHILS 0.1 % (0-7); HEMATOCRIT 42.4 % (36.0-48.0); HEMOGLOBIN 13.3 g/dL (12-16); IMMATURE GRANULOCYTES 0.5 % (0-5); LYMPHOCYTES 8.1 % (15-50); MCH 28.5 pg (26.0-34.0); MCHC 31.4 g/dL (31.0-37.0); MEAN PLATELET VOLUME 9.9 fL (7.4-10.4); NEUTROPHILS 89.3 % (40-80); PLATELET COUNT 266 10x3/uL (130-400); RBC 4.66 10x6/uL (4.00-5.40); RDW 16.1 % (11.5-14.5); WBC 18.9 10x3/uL (4.8-10.8)
[2020-07-14 06:31] LABS: ALBUMIN 2.8 g/dL (3.4-5.0); BILIRUBIN - TOTAL 0.45 mg/dL (0.2-1.3); CALC OSMOLALITY 265 mosm/kg (275-300); CALCIUM 8.9 mg/dL (8.5-10.1); CARBON DIOXIDE 27.5 mmol/L (21.0-32.0); CHLORIDE - SERUM 102 mmol/L (98-107); CKMB 3.5 U/L (0.0-3.6); CREATININE - SERUM 0.7 mg/dL (0.6-1.3); GLUCOSE 139 mg/dL (74-106); PROTEIN - SERUM 7.5 g/dL (6.4-8.2); SODIUM 132 mmol/L (136-145); UREA NITROGEN 11 mg/dL (7-18); eGFR NON AFRICAN AMERICAN > 90 mL/min (90-120)
[2020-07-14 06:44] LABS: ALKALINE PHOSPHATASE 69 U/L (30-120); ALT (SGPT) 24 U/L (10-68); CREATINE KINASE 525 UL (21-215); POTASSIUM - SERUM 5.1 mmol/L (3.5-5.1); TROPONIN-I < 0.017 ng/mL (0.000-0.060)
[2020-07-14 07:56] LABS: BILIRUBIN NEGATIVE (NEGATIVE); KETONE NEGATIVE (NEGATIVE); NITRITE NEGATIVE (NEGATIVE); UROBILINOGEN NORMAL mg/dL (< 2)
[2020-07-14 07:58] LABS: BACTERIA FEW HPF (NONE SEEN); EPITHELIAL CELLS OCC /hpf (0-5); WHITE CELLS - URINE 0-5 HPF (0-4)
--- NOTE | 2020-07-14 07:59 | NUR ---
CALLED PHARMACY AND SPOKE WITH JOAN, INFORMED HIM THAT I NEED VOLTAREN AND EFFEXOR FOR PT.
--- NOTE | 2020-07-14 11:29 | NUR ---
PROVIDED PT WITH SUPPLIES NEEDED FOR SPONGE BATH. PT DENIES ANY OTHER NEEDS AT THIS TIME.C ALL LIGHT IN REACH,NAD NOTED, WILL CONTINUE TO MONITOR.
[2020-07-14 11:57] LABS: CKMB 3.7 U/L (0.0-3.6); CREATINE KINASE 372 UL (21-215); TROPONIN-I < 0.017 ng/mL (0.000-0.060)
--- NOTE | 2020-07-14 15:30 | NUR ---
4MG OF MORHINE GIVEN FOR PAIN LEVEL OF 9/10. ALSO GAVE 4MG OF ZOFRAN PER PT REQUEST.
--- NOTE | 2020-07-14 18:33 | NUR ---
LEFT HAND IV INFILTRATED, D/C IV WITH CATHETER TIP INTACT. NEW 20G IV STARTED TO RT WRIST XI STICK. PT TOLERATED WELL, DENIES ANY NEEDS AT THIS TIME. CALL LIGHT IN REACH.
--- NOTE | 2020-07-14 22:14 | NUR ---
INITIAL ROUNDS COMPLETED AT 1914 HRS. PT CONVERSING ON PHONE, NO DISTRESS NOTED. ASSESSMETN COMPLETED AT [address] PER CM HR 113. O2 3LNC. ALERT AND ORIENTED TO PERSON, PLACE AND TIME. MORENO. IV TO R WRIST WITH ZITHROMAX INFUSING. IV PATENT. LUNGS DIMINISHED IN BASES BILAT WITH SCATTERED EXP WHEEZES NOTED TO UPPER LOBES. ABD SOFT WITH ACTIVE BS NOTED. MORENO. PRUNE JUICE GIVEN PER REQUEST. MORPHINE 4MG, ZOFRAN 4MG SIVP GIVEN AT 2035 FOR C/O BACK PAIN. PM MEDS GIVEN INCLUDING VALIUM FOR C/O ANXIETY. PT CURRENTLY WATCHING TV. NO DISTRESS NOTED. SR UP X2, CALL LIGHT WITHIN REACH.
[2020-07-15 00:30] VITALS: BP 122/77
--- NOTE | 2020-07-15 00:57 | NUR ---
PT RESTING WITH EYES CLOSED. RESP EVEN AND REGULAR. SR UP X2, CALL LIGHT WITHIN REACH.
--- NOTE | 2020-07-15 02:51 | NUR ---
PT RESTING WITH EYES CLOSED. RESP EVEN AND REGULAR. CALL LIGHT WITHIN REACH.
[2020-07-15 04:13] VITALS: BP 126/74
--- NOTE | 2020-07-15 04:53 | NUR ---
PT STATES PAIN LEVEL NOW 5/10 AFTER MORPHINE ADMINISTRATION. CALL LIGHT WITHIN REACH.
--- NOTE | 2020-07-15 06:25 | NUR ---
VSS THROUGHOTU NIGHT. PT RESTED WELL AFTER VALIUM ADMINISTRATION. PT CURRENTLY UP IN THE SHOWER. WILL CONTINUE TO MONITOR.
--- NOTE | 2020-07-15 07:00 | NUR ---
RECEIVED REPORT. ASSUMED CARE OF PATIENT. CALL LIGHT WITHIN REACH. PATIENT AWAKE, ALERT LYING IN BED. RESP EVEN AND UNLABORED. SCATTERED EXPIRATORY WHEEZES NOTED. BEDSIDE SHIFT REPORT COMPLETE. WHITE BOARD UPDATED. NO DISTRESS.
--- NOTE | 2020-07-15 07:43 | NUR ---
FLUTTER VALVE, INCENTIVE SPIROMETRY, AND LARGER GOWN PROVIDED AT THIS TIME. NO DISTRESS.
[2020-07-15 08:46] VITALS: BP 131/88
[2020-07-15 10:31] LABS: ANION GAP 9.1 mmol/L (8-16); CALCIUM 8.4 mg/dL (8.5-10.1); CARBON DIOXIDE 27.6 mmol/L (21.0-32.0); CREATININE - SERUM 1.1 mg/dL (0.6-1.3); POTASSIUM - SERUM 3.7 mmol/L (3.5-5.1)
[2020-07-15 10:34] LABS: BASOPHILS 0.1 % (0-2); EOSINOPHILS 0.1 % (0-7); HEMATOCRIT 37.7 % (36.0-48.0); HEMOGLOBIN 11.7 g/dL (12-16); IMMATURE GRANULOCYTES 1.1 % (0-5); LYMPHOCYTES 12.1 % (15-50); MCH 27.9 pg (26.0-34.0); MEAN PLATELET VOLUME 9.1 fL (7.4-10.4); MONOCYTES 5.8 % (2-11); NEUTROPHILS 80.8 % (40-80); PLATELET COUNT 273 10x3/uL (130-400); RBC 4.19 10x6/uL (4.00-5.40); RDW 15.2 % (11.5-14.5); WBC 18.8 10x3/uL (4.8-10.8)
[2020-07-15 11:58] VITALS: BP 97/63
--- NOTE | 2020-07-15 12:49 | NUR ---
MEDICATED FOR PAIN AT THIS TIME. NO DISTRESS.
[2020-07-15 17:04] VITALS: BP 128/75
--- NOTE | 2020-07-15 19:15 | NUR ---
RECIEVED PT LAYING IN BED ALERT AND ORIENTED.PT HAS WHEEZES TO ALL LOBES OF THE LUNG.PT WITH FREQUENT COUGH.OCC PRODUCTION,YELLOW PHLEGM.IV TO RIGHT WRIST AREA IS INFILTRATED.PT C/O PAIN AT INSERTION SITE.HEARTRATE IS REGULAR.PT WITH NO C/O PAIN AT THIS TIME.WILL CONTINUE TO MONITOR.SAFETY MEASURES ARE IN PLACE.
[2020-07-15 20:30] VITALS: BP 115/66
--- NOTE | 2020-07-16 00:05 | NUR ---
PT LAYING IN BED RESTING WITH EYES CLOSED.RESP ARE UNLABORED. PT HAS AUDIBLE WHEEZES.NO IV ACESS AT THIS TIME.SAFETY MEASURES ARE IN PLACE.
[2020-07-16 00:45] VITALS: BP 151/70
--- NOTE | 2020-07-16 02:00 | NUR ---
IV RESTARTED TO LEFT HAND USING A 22 GAUGE ANGIOCATH.IV FLUIDS RESTARTED.NO DISTRESS NOTED.
--- NOTE | 2020-07-16 03:15 | NUR ---
PT GIVEN MORPHINE 4 MG AND ZOFRAN 4 MG IVP.PT C/O PAIN TO BACK.RATES PAIN A 8 ON PAIN SCALE.WILL CONTINUE TO MONITOR.
[2020-07-16 04:30] VITALS: BP 118/74
--- NOTE | 2020-07-16 05:08 | NUR ---
PT RESTING WITH EYES CLOSED.SAFETY MEASURES ARE IN PLACE.
[2020-07-16 08:57] LABS: HEMATOCRIT 37.8 % (36.0-48.0); HEMOGLOBIN 11.3 g/dL (12-16); MCH 27.6 pg (26.0-34.0); MCHC 29.9 g/dL (31.0-37.0); MEAN PLATELET VOLUME 9.3 fL (7.4-10.4); PLATELET COUNT 294 10x3/uL (130-400); RBC 4.09 10x6/uL (4.00-5.40); RDW 15.7 % (11.5-14.5)
[2020-07-16 08:59] LABS: MCV 92.4 fL (80.0-100.0); WBC 12.4 10x3/uL (4.8-10.8)
[2020-07-16 09:00] VITALS: BP 90/68
[2020-07-16 09:07] LABS: ALBUMIN 2.9 g/dL (3.4-5.0); BILIRUBIN - TOTAL 0.18 mg/dL (0.2-1.3); PROTEIN - SERUM 6.1 g/dL (6.4-8.2)
[2020-07-16 09:17] LABS: ANION GAP 11.6 mmol/L (8-16); POTASSIUM - SERUM 4.6 mmol/L (3.5-5.1)
[2020-07-16 10:27] LABS: BILIRUBIN NEGATIVE (NEGATIVE); KETONE NEGATIVE (NEGATIVE); NITRITE NEGATIVE (NEGATIVE); UROBILINOGEN NORMAL mg/dL (< 2)
[2020-07-16 10:51] LABS: EOSINOPHILS 3 % (0-7); LYMPHOCYTES 20 % (15-50); MONOCYTES 12 % (2-11); NEUTROPHILS 65 % (40-80); PLATELET ESTIMATE NORMAL; ROULEAUX OCC
--- NOTE | 2020-07-16 19:20 | NUR ---
PT LAYING IN BED ALERT AND ORIENTED.PT HAS 02 @ 2L/M PER NASAL CANNULA.RESP ARE EVEN ET UNLABORED.PT HAS AUDIBLE WHEEZES.PT C/O PAIN TO BACK AND RIGHT FLANK.RATES PAIN A 9 ON PAIN SCALE.HEARTRATE IS REGULAR.IV TO LEFT HAND WITHOUT S/S OF INFILTRATION.PT WITH A PRODUCTIVE COUGH.WILL CONTINUE TO MONITOR.CALLBELL IN REACH.SIDERAILS ARE UP X2.
[2020-07-16 20:00] VITALS: BP 125/68
--- NOTE | 2020-07-16 20:36 | NUR ---
PT LAYING IN BED RESTING QUIETLY. PT GIVEN PM MEDS. PT GIVEN MORPHINE FOR PAIN.IV PATENT.SAFETY MEASURES ARE IN PLACE.WILL CONTINUE TO MONITOR.
--- NOTE | 2020-07-17 00:40 | NUR ---
PT LAYING IN BED RESTING QUIETLY WITH EYES CLOSED. 02 IN USE. RESP ARE UNLABORED.WILL CONTINUE TO MONITOR.
[2020-07-17 04:00] VITALS: BP 127/79
--- NOTE | 2020-07-17 04:52 | NUR ---
PT ANUSHA HAD QUIET HOURS.PT LAYING IN BED RESTING WITH EYES CLOSED. RESP ARE UNLABORED.NO DISTRESS NOTED.
[2020-07-17 06:49] LABS: BASOPHILS 0.2 % (0-2); EOSINOPHILS 10.6 % (0-7); HEMATOCRIT 37.7 % (36.0-48.0); HEMOGLOBIN 11.2 g/dL (12-16); IMMATURE GRANULOCYTES 0.6 % (0-5); LYMPHOCYTES 29.1 % (15-50); MCH 27.4 pg (26.0-34.0); MCHC 29.7 g/dL (31.0-37.0); MCV 92.2 fL (80.0-100.0); MONOCYTES 6.9 % (2-11); NEUTROPHILS 52.6 % (40-80); PLATELET COUNT 261 10x3/uL (130-400); RBC 4.09 10x6/uL (4.00-5.40); RDW 15.4 % (11.5-14.5)
[2020-07-17 07:20] LABS: ALBUMIN 2.6 g/dL (3.4-5.0); ANION GAP 6.4 mmol/L (8-16); BILIRUBIN - TOTAL 0.14 mg/dL (0.2-1.3); CALCIUM 8.1 mg/dL (8.5-10.1); CARBON DIOXIDE 31.4 mmol/L (21.0-32.0); POTASSIUM - SERUM 3.8 mmol/L (3.5-5.1); PROTEIN - SERUM 6.1 g/dL (6.4-8.2)
[2020-07-17 09:52] VITALS: BP 129/79
--- NOTE | 2020-07-17 10:25 | NUR ---
I have reviewed this patient and I concur with the Shift Assessment completed by the Licensed Practical Nurse today this shift.
--- NOTE | 2020-07-17 11:26 | NUR ---
Nutrition Follow-up: Diet: Regular PO intake: 100% x last 6 meals, eating well per RN Last BM: none recorded since admit. Wt: 305# (07/14/20) Meds noted: solumedrol, lactulose, senokot, bentyl, rocephin, zithromax Labs noted: Glucose 110(H), Alb 2.6(L) Recommend continue current diet. Noted patient is on bentyl and senokot/lactulose? RD following.
--- NOTE | 2020-07-17 19:45 | NUR ---
REPORT RECIEVED AND ROUNDING COMPLETE. PATIENT SITTING UP IN BED, QUIN REQUESTS A SHOWER THIS EVENING, EXPLAINED THAT SHE NEEDED ABX BUT AFTER MED HAS RAN WE WILL SET HER UP FOR A SHOWER. PATIENT IS A&O X4, RIGHT HAND PIV THAT IS PATIENT AND RUNNING FLUIDS AND ABX AT THIS TIME. WEARING NASAL CANNULA WITH O2 AT 3L. PATIENT HAS NO NEEDS AT THIS TIME AND SHOWS NO S/SX OF DISTRESS. CALL LIGHT WIHTIN REACH AND BED IN LOWEST LOCKED POSITION.
[2020-07-17 20:00] VITALS: BP 141/73
[2020-07-18] VITALS: BP 132/79
[2020-07-18 04:00] VITALS: BP 146/85
[2020-07-18 06:22] LABS: ALBUMIN 2.7 g/dL (3.4-5.0); ALKALINE PHOSPHATASE 56 U/L (30-120); ALT (SGPT) 24 U/L (10-68); BASOPHILS 0.1 % (0-2); CALC OSMOLALITY 278 mosm/kg (275-300); CALCIUM 8.6 mg/dL (8.5-10.1); CARBON DIOXIDE 29.4 mmol/L (21.0-32.0); CHLORIDE - SERUM 104 mmol/L (98-107); CREATININE - SERUM 0.8 mg/dL (0.6-1.3); EOSINOPHILS 0.8 % (0-7); GLUCOSE 99 mg/dL (74-106); HEMATOCRIT 37.1 % (36.0-48.0); HEMOGLOBIN 11.3 g/dL (12-16); IMMATURE GRANULOCYTES 0.8 % (0-5); LYMPHOCYTES 20.5 % (15-50); MAGNESIUM - SERUM 2.1 mg/dL (1.8-2.4); MCH 27.7 pg (26.0-34.0); MCHC 30.5 g/dL (31.0-37.0); MCV 90.9 fL (80.0-100.0); MEAN PLATELET VOLUME 9.3 fL (7.4-10.4); MONOCYTES 6.3 % (2-11); NEUTROPHILS 71.5 % (40-80); PLATELET COUNT 302 10x3/uL (130-400); POTASSIUM - SERUM 4.2 mmol/L (3.5-5.1); PROTEIN - SERUM 6.4 g/dL (6.4-8.2); RBC 4.08 10x6/uL (4.00-5.40); RDW 14.8 % (11.5-14.5); SODIUM 139 mmol/L (136-145); UREA NITROGEN 14 mg/dL (7-18); eGFR NON AFRICAN AMERICAN 82 mL/min (90-120)
[2020-07-18 06:23] LABS: WBC 17.2 10x3/uL (4.8-10.8)
[2020-07-18 08:28] VITALS: BP 105/61
[2020-07-18 16:58] VITALS: BP 134/79
--- NOTE | 2020-07-18 18:56 | MORECARE ---
CASE MANAGEMENT DISCHARGE SUMMARY PATIENT: DOROTA LANDERS UNIT: [id number] ADM DATE: 07/13/20 AGE: 45 : 73 SEX: F ROOM/BED: D.7754 AUTHOR: JONAS PEREZ PHYSICIAN: REFERRING PHYSICIAN: ISH RAMOS MD DATE OF SERVICE: 07/18/20 Discharge Plan Patient Name: DOROTA LANDERS Facility: [facility]:[place] : 1975 Planned Disposition: Anticipated Discharge Date: Discharge Date: Expected LOS: Initial Reviewer: [email or web address] Initial Review Date: 07/13/2020 Generated: 07/18/20 7:56 pm DCPIA - Discharge Planning Initial Assessment Updated by [email or web address]: Melvina Mcneil on 07/18/20 6:54 pm * Is the patient Alert and Oriented? Yes * How many steps to enter\exit or inside your home? 1/0 * PCP [facility] in [facility] * Pharmacy [facility] in [place] * Preadmission Environment Home with Family * ADLs Partial Dependent * Partial ADLs (Assistance needed) Bathing Dressing Medication Management * Equipment None * List name and contact numbers for known caregivers / representatives who currently or will assist patient after discharge: Yuniel 0husband) [phone] María (cousin) [phone] * Verbal permission to speak to the caregivers and representatives has been obtained from the patient. Yes * Community resources currently utilized None * Additional services required to return to the preadmission environment? Yes * Can the patient safely return to the preadmission environment? Yes * Has this patient been hospitalized within the prior 30 days at any hospital? No Patient Name: DOROTA LANDERS Page 11216 at 1856 All edits/amendments must be made on the electronic document DICTATION DATE: 07/18/201855 RADIO BOARD OPERATOR ANNOUNCER: VIJI 07/18/201855 RPT#: [id number] DC DATE: STATUS: ADM IN [facility] [address] [place] [address] END OF REPORT
--- NOTE | 2020-07-18 19:03 | MORECARE ---
CASE MANAGEMENT DISCHARGE SUMMARY PATIENT: DOROTA LANDERS UNIT: [id number] ADM DATE: 07/13/20 AGE: 45 : 73 SEX: F ROOM/BED: D.7472 AUTHOR: ANA,DOC PHYSICIAN: REFERRING PHYSICIAN: ISH RAMOS MD DATE OF SERVICE: 07/18/20 Discharge Plan Patient Name: DOROTA LANDERS Facility: [facility]:[place] : 1975 Planned Disposition: Anticipated Discharge Date: Discharge Date: Expected LOS: Initial Reviewer: [email or web address] Initial Review Date: 07/13/2020 Generated: 07/18/20 8:03 pm Comments DCP- Discharge Planning Updated by [email or web address]: Melvina Mcneil on 07/18/20 6:[address] Patient Name: DOROTA LANDERS Admission Status: ER Accout number: [id number] Admission Date: 07-13-2020 : 1975 Admission Diagnosis:SHORTNESS OF BREATH Attending: LORRIE Current LOS: 5 Anticipated DC Date: Planned Disposition: Primary Insurance: MEDICAID [place] Discharge Planning Comments: CM met with patient to complete initial dc planning assessment. Verbal consent given by patient to complete assessment. CM verified patient's address, phone number, and emergency contact phone numbers. Patient lives at home with her and her son. The patient states that they live in a shed that they are converting into a tiny home. States they have electricity, and running water but no shower. States her son helps her bathe from the sink. States she takes showers and does laundry at her cousins house. States she uses the [place] on the property for bathing, and at times has used this for drinking water. States she uses purchased bottle water when it is available. States she is disabled and requires medication management, and assisting with cooking, and bathing. At discharge patient plans to return home and feels this is a safe discharge. CM discussed availability of home health, rehab services, and medical equipment. Patient denied known discharge needs at this time. CM anticipates the need for home and portable oxygen. JOHN signed for [facility]. Cm spoke with the patient about additional services to assist her at home with medication management, cleaning, cooking, and bathing. Patient states her son helps her and declined the need for any home health services. CM spoke with patient about area on aging and provided a packet. Patient states she will allow those services to assist her. Declined the Transportation provider at discharge will be María [phone].. CM will continue to follow and will assist as needed with dc plans/needs. Pie Icer Machine: Melvina Mcneil DCPIA - Discharge Planning Initial Assessment Updated by [email or web address]: Melvina Mcneil on 07/18/20 6:54 pm * Is the patient Alert and Oriented? Yes * How many steps to enter\exit or inside your home? 1/0 * PCP [facility] in [facility] * Pharmacy [facility] in [place] * Preadmission Environment Home with Family * ADLs Partial Dependent * Partial ADLs (Assistance needed) Bathing Dressing Medication Management * Equipment None * List name and contact numbers for known caregivers / representatives who currently or will assist patient after discharge: Yuniel 0sband) [phone] María (cousin) [phone] * Verbal permission to speak to the caregivers and representatives has been obtained from the patient. Yes * Community resources currently utilized None * Additional services required to return to the preadmission environment? Yes * Can the patient safely return to the preadmission environment? Yes * Has this patient been hospitalized within the prior 30 days at any hospital? No Last DP export: 07/18/20 5:56 Patient Name: DOROTA LANDERS Page 87174 at 1903 All edits/amendments must be made on the electronic document DICTATION DATE: 07/18/201902 LABOR RELATIONS MANAGER: VIJI 07/18/201902 RPT#: [id number] DC DATE: STATUS: ADM IN [facility] [address] [place] [address] END OF REPORT
--- NOTE | 2020-07-18 19:38 | NUR ---
RECEIVED BEDSIDE REPORT. ROUNDING COMPLETE. PATIENT IS ALERT AND ORIENTED, RESTING COMFORTABLY IN BED. RESPIRATIONS ARE EVEN AND UNLABORED. NO S/S OF DISTRESS. NO C/O PAIN. CALL LIGHT WITHIN REACH. WILL CPOC.
[2020-07-18 20:00] VITALS: BP 151/85
[2020-07-19] VITALS: BP 132/84
[2020-07-19 04:00] VITALS: BP 137/89
[2020-07-19 07:06] LABS: BASOPHILS 0.2 % (0-2); EOSINOPHILS 0.1 % (0-7); HEMATOCRIT 39.1 % (36.0-48.0); HEMOGLOBIN 11.9 g/dL (12-16); IMMATURE GRANULOCYTES 1.5 % (0-5); LYMPHOCYTES 11.5 % (15-50); MCH 27.8 pg (26.0-34.0); MCHC 30.4 g/dL (31.0-37.0); MCV 91.4 fL (80.0-100.0); MEAN PLATELET VOLUME 9.3 fL (7.4-10.4); MONOCYTES 4.1 % (2-11); NEUTROPHILS 82.6 % (40-80); PLATELET COUNT 328 10x3/uL (130-400); RBC 4.28 10x6/uL (4.00-5.40); WBC 19.5 10x3/uL (4.8-10.8)
[2020-07-19 07:30] LABS: ALBUMIN 2.9 g/dL (3.4-5.0); ALKALINE PHOSPHATASE 63 U/L (30-120); ALT (SGPT) 26 U/L (10-68); BILIRUBIN - TOTAL 0.13 mg/dL (0.2-1.3); CALC OSMOLALITY 279 mosm/kg (275-300); CALCIUM 8.9 mg/dL (8.5-10.1); CARBON DIOXIDE 30.4 mmol/L (21.0-32.0); CHLORIDE - SERUM 102 mmol/L (98-107); CREATININE - SERUM 0.7 mg/dL (0.6-1.3); GLUCOSE 141 mg/dL (74-106); POTASSIUM - SERUM 4.7 mmol/L (3.5-5.1); PROTEIN - SERUM 6.6 g/dL (6.4-8.2); SODIUM 138 mmol/L (136-145); UREA NITROGEN 18 mg/dL (7-18); eGFR NON AFRICAN AMERICAN > 90 mL/min (90-120)
[2020-07-19 08:42] VITALS: BP 127/89
[2020-07-19 12:48] VITALS: BP 118/77
--- NOTE | 2020-07-19 12:58 | NUR ---
Nutrition Follow-up: Eating well. Ate 100% of breakfast this AM. Concerned about not having a BM; reports last BM was 07/13. Noted KUB ordered. Diet: Regular Wt: 305# (07/14) Labs noted: Glu 141, Alb 2.9 Meds noted: Prednisone, Florajen, Lactulose, Senokot, Protonix, electrolyte protocol -RD following.
[2020-07-19] MEDS ORDERED: NYSTATIN100000 UN4 PO (15:45)
[2020-07-19] MEDS ORDERED: VENTOLIN HFA [SP8 GM INH (15:46)
[2020-07-19] MEDS ORDERED: PULMICORT0.5 MG/21 UPD (15:47)
[2020-07-19] MEDS ORDERED: TESSALON PERLE100 MG PO (15:47)
[2020-07-19] MEDS ORDERED: MUCINEX DM ER1 EAC1 PO (15:48)
[2020-07-19] MEDS ORDERED: FLUTICASONE PRO16 GM NASAL (15:48)
[2020-07-19] MEDS ORDERED: SINGULAIR10 MG PO (15:48)
[2020-07-19] MEDS ORDERED: PREDNISONE20 MG PO (15:49)
[2020-07-19] MEDS ORDERED: OMNICEF300 MG PO (15:50)
[2020-07-19 18:05] VITALS: BP 120/74
--- NOTE | 2020-07-20 18:51 | MORECARE ---
CASE MANAGEMENT DISCHARGE SUMMARY PATIENT: DOROTA LANDERS UNIT: [id number] ADM DATE: 07/13/20 AGE: 45 : 73 SEX: F ROOM/BED: D.2562 AUTHOR: ANADOC PHYSICIAN: REFERRING PHYSICIAN: ISH RAMOS MD DATE OF SERVICE: 07/20/20 Discharge Plan Patient Name: DOROTA LANDERS Facility: [facility]:[place] : 1975 Planned Disposition: Anticipated Discharge Date: Discharge Date: 07/19/2020 Expected LOS: Initial Reviewer: [id number] Initial Review Date: 07/13/2020 Generated: 07/20/20 7:50 pm Comments DCP- Discharge Planning Updated by [email or web address]: Melvina Mcneil on 07/18/20 6:[address] Patient Name: DOROTA LANDERS Admission Status: ER Accout number: [id number] Admission Date: 07-13-2020 : 1975 Admission Diagnosis:SHORTNESS OF BREATH Attending: LORRIE Current LOS: 5 Anticipated DC Date: Planned Disposition: Primary Insurance: MEDICAID [place] Discharge Planning Comments: CM met with patient to complete initial dc planning assessment. Verbal consent given by patient to complete assessment. CM verified patient's address, phone number, and emergency contact phone numbers. Patient lives at home with her and her son. The patient states that they live in a shed that they are converting into a tiny home. States they have electricity, and running water but no shower. States her son helps her bathe from the sink. States she takes showers and does laundry at her cousins house. States she uses the [place] [employer] on the property for bathing, and at times has used this for drinking water. States she uses purchased bottle water when it is available. States she is disabled and requires medication management, and assisting with cooking, and bathing. At discharge patient plans to return home and feels this is a safe discharge. CM discussed availability of home health, rehab services, and medical equipment. Patient denied known discharge needs at this time. CM anticipates the need for home and portable oxygen. [facility] signed for [facility]. Cm spoke with the patient about additional services to assist her at home with medication management, cleaning, cooking, and bathing. Patient states her son helps her and declined the need for any home health services. CM spoke with patient about area on aging and provided a packet. Patient states she will allow those services to assist her. Declined the Transportation provider at discharge will be María [phone].. CM will continue to follow and will assist as needed with dc plans/needs. Brim Curler: Melvina Mcneil DCPIA - Discharge Planning Initial Assessment Updated by [email or web address]: Melvina Mcneil on 07/18/20 6:54 pm * Is the patient Alert and Oriented? Yes * How many steps to enter\exit or inside your home? 1/0 * PCP [facility] in [facility] * Pharmacy [facility] in [place] * Preadmission Environment Home with Family * ADLs Partial Dependent * Partial ADLs (Assistance needed) Bathing Dressing Medication Management * Equipment None * List name and contact numbers for known caregivers / representatives who currently or will assist patient after discharge: Yuniel 0husband) [phone] María (cousin) [phone] * Verbal permission to speak to the caregivers and representatives has been obtained from the patient. Yes * Community resources currently utilized None * Additional services required to return to the preadmission environment? Yes * Can the patient safely return to the preadmission environment? Yes * Has this patient been hospitalized within the prior 30 days at any hospital? No Coverage Notice Reviewer: [id number] - Melvina Mcneil Notice Issued Date-Time: 07/18/2020 14:00 Notice Type: Patient Choice Letter Notice Delivered To: Patient Relationship to Patient: Self Gas Meter Repair Supervisor Name: Delivery Method: HAND - Hand Delivered Eli Days: Prior Verbal Notification: Recipient Understood Notice: Yes Recipient Signature: Yes Med Rec Note Co-signed by Attending: Coverage Notice Comment: gary signed for [facility], declined services Last DP export: 07/18/20 6:03 Patient Name: DOROTA LANDERS Page 23038 at 1851 All edits/amendments must be made on the electronic document DICTATION DATE: 07/20/201849 JAPANESE TUTOR: VIJI 07/20/201849 RPT#: [id number] DC DATE:07/19/20 STATUS: DIS IN [facility] [address] [place] [address] END OF REPORT
== END 2020-07-19 18:36 | disposition home or self-care (01) | DRG 189 ==
LOC: D.ER 12:49 → D.M2 17:45
PROVIDERS: Emergency Medicine; Family Medicine; ADMIT Family Medicine; ATTEND Family Medicine
DX: J96.21 Acute and chronic respiratory failure with hypoxia (principal); J44.1 Chronic obstructive pulmonary disease with (acute) exacerbation; Z68.43 Body mass index [BMI] 50.0-59.9, adult; J44.0 Chronic obstructive pulmonary disease with (acute) lower respiratory infection; F12.90 Cannabis use, unspecified, uncomplicated; E83.42 Hypomagnesemia; M32.9 Systemic lupus erythematosus, unspecified; F20.9 Schizophrenia, unspecified; M79.7 Fibromyalgia; J20.9 Acute bronchitis, unspecified; E66.01 Morbid (severe) obesity due to excess calories; J30.9 Allergic rhinitis, unspecified